=== PATIENT | female | born 1935 | race Caucasian/White ===

== ENCOUNTER 2017-05-27 06:02 | Outpatient (CLI) | payer MEDICARE, OTHER ==
[~2017-05-27] VITALS: Ht 172.7 cm; Wt 81.0 kg
--- NOTE | ~2017-05-27 | CATH ---
Cardiac Diagnostic Report Demographics Patient Name AIDAN Simmons Gender Female Date of 1935 Age 82 year(s) Patient Number [id number] Date of Study 05/27/2017 Visit Number [id number] Room Number G6399 [place] [id number] Ht 172.72 cm Wt 81 kg Referring Pam Merchant Primary Physician Physician Performing Kyara Booth MD Secondary Physician Physician Diagnostic Kyara Booth MD Assisting Physician Physician Interventional Physician Cause Analyst Physician Findings and Conclusions Diagnostic Findings and Conclusion Two vessel CAD. Severe aortic stenosis. Diagnostic Recommendations Evaluation for TAVR. Procedure Description The patient was brought to the diagnostic cardiac catheterization-EP laboratory in the fasting, non-sedated state. Informed consent was obtained in the written and verbal form after the risks and benefits were explained. The patient had no further questions and agreed to proceed. The planned puncture-incision site(s) were shaved and prepped with ChloraPrep and draped in the usual sterile manner. Conscious sedation and pain control medications were delivered by a registered nurse under physician guidance. Surface ECG rhythm, blood pressure measurement, and pulse oximetry were monitored throughout the procedure. Arterial access. The access site was infiltrated with lidocaine. The vessel was entered with the Seldinger technique. A sheath was advanced into the vessel and used for catheter placement. Venous access. The access site was infiltrated with 2% lidocaine. The vessel was entered with the Seldinger technique. A sheath was advanced into the vessel and used for catheter placement. Selective left coronary angiography. A catheter was advanced into the left coronary vessel ostium under Fluoroscopic guidance. Contrast was injected by hand. Images were obtained in multiple projections. Selective right coronary angiography. A catheter was advanced into the right coronary vessel ostium under fluoroscopic guidance. Contrast was injected by hand. Images were obtained in multiple projections. Left heart catheterization. A catheter was advanced across the aortic valve to the left ventricle under fluoroscopic guidance. Resting hemodynamics were obtained. Right heart catheterization. A Mccool Veronika catheter was successfully advanced to the right atrium, right ventricle, pulmonary artery, and pulmonary artery wedge position under fluoroscopic guidance. Resting hemodynamics were obtained. Measurements included pressures, arterial and venous oxygen saturation samples, and cardiac output. The Mccool was removed without difficulty. Arterial and Venous hemostasis was achieved. The patient was transferred to a regular nursing floor via cart accompanied by a nurse. The patient left the laboratory in stable condition. Diagnostic Cath Status: Elective Procedure Procedure Type Diagnostic procedure:Angiography:, Right and Left Heart Cath, Coronary Angios Indications: Aortic stenosis by Echo and Dyspnea with exertion. The procedure was explained in detail to the patient. Risks, complications and alternative treatments were reviewed. Written consent was obtained. Medications Reviewed with Patient prior to Procedure. Angiographic Findings Dominance: Right Cardiac Arteries and Lesion Findings LMCA: Large, calcified. LAD: Large, calcified. Diag 1 medium, normal. LCx: Large, co-dominant. AV groove over ostial 95% stenosis. OM large, normal. RCA: Chronic occlusion. Lesion on Prox RCA: Proximal subsection.100% stenosis .Chronic total occlusion. Graft Lesions Lesion on Aorta Right to R PDA: Middle body.50% stenosis . Cardiac Grafts - There is a Vein graft that originates at the Aorta Right and attaches to the R PDA (Medium, mid 50% stenosis. [place] fine.). - There is a RANDOLPH graft that originates at the RANDOLPH and attaches to the Prox LAD (Patent.). Coronary Tree Procedure Data Procedure Date Date: 05/27/2017Start: 08:07 AMEnd: 09:08 AM Entry Locations - Retrograde Percutaneous access was performed through the Right Femoral artery (Primary location). A 6 Fr sheath was inserted. Hemostasis was successfully obtained using Suture. Closure Comments: Sutured into place by Shivani León.. - Antegrade Percutaneous access was performed through the Right Femoral vein. A 7 Fr sheath was inserted. Hemostasis was successfully obtained using Suture. Closure Comments: Sutured into place by Shivani León.. Procedure Medications Order and Administration + + + + + !Time !Medication !Dosage !Route ! + + + + + !05/27/2017 08:21 AM !Versed !1 mg !I.V. ! + + + + + !05/27/2017 08:22 AM !Fentanyl !25 mcg !I.V. ! + + + + + !05/27/2017 08:33 AM !Heparin (ACC_3) !3000 units !I.V. bolus ! + + + + + Devices Used - A6 Fr. BS JL 4 Diag. Catheterwas used for:Left coronary angiography. - A6 Fr. BS Angled Pigtail Diag. Catheterwas used for:LV Pressures. - A6 Fr. BS JR 4 Diag. Catheterwas used for:Right coronary angiography. - A6 Fr. BS IMT Diag. Catheterwas used for:RANDOLPH. Contrast Material - Isovue 50561 ml Fluoroscopy Time: Diagnostic: 9:24 minutes. Total: 9:24 minutes. Fluoroscopy Dose: Diagnostic: 337 mGy. Total: 337 mGy. Estimated Blood Loss: 4 ml. Medical History Allergies - No known allergies. Risk Factors The patient risk factors include:prior CABG;treated hypercholesterolemia, treated hypertension, diet-treated diabetes mellitus and dyslipidemia. Admission Data Admission Date: 05/27/2017 Admission Time: 06:02 AM Admit Source: Other Insurance Payors: Medicare. Admission Medications + +------+------+ + + + + !Medication !Dosage!Times !Last !Last !Administered !Comments ! ! ! !Per !Delivery !Delivery ! ! ! ! ! !Day !Date !Time ! ! ! + +------+------+ + + + + !Aspirin ! ! ! ! ! ! ! !(any) ! ! ! ! ! ! ! + +------+------+ + + + + !DILEEP ! ! ! ! ! ! ! !Inhibitor ! ! ! ! ! ! ! !(any) ! ! ! ! ! ! ! + +------+------+ + + + + !Beta Bob! ! ! ! ! ! ! !(any) ! ! ! ! ! ! ! + +------+------+ + + + + !Non-Statin ! ! ! ! ! ! ! !(any) ! ! ! ! ! ! ! + +------+------+ + + + + Hemodynamics Condition: Rest O2 Consumption: Estimated: 178.98Heart Rate: 77 bpm Oxygen Saturation +--------+-----+----+ +----+ + !Location!pCO2 !pO2 !% Saturation !Hgb !O2 Content ! +--------+-----+----+ +----+ + !IVC ! ! !84.5 !12.6! ! +--------+-----+----+ +----+ + !High RA ! ! !73.9 !12.6! ! +--------+-----+----+ +----+ + !PCW ! ! !76.9 !12.6! ! +--------+-----+----+ +----+ + !FA ! ! !97.9 !12.6! ! +--------+-----+----+ +----+ + Pressures (mmHg) +-----+ + !Site !Pressure ! +-----+ + !RA !12/15 (2) ! +-----+ + !RA !01/17 (2) ! +-----+ + !RV !37/-5 ,4 ! +-----+ + !PCW !25/08 (10) ! +-----+ + !PA !/ (15) ! +-----+ + !LV !196/1 ,16 ! +-----+ + !PCW !09/30 (14) ! +-----+ + !LV !129/24 ,5 ! +-----+ + !PCW ! (18) ! +-----+ + !LV !196/0 ,9 ! +-----+ + !PCW !18/23 (15) ! +-----+ + !LV !213/3 ,14 ! +-----+ + !PCW !17/20 (14) ! +-----+ + !FA !178/77 (122) ! +-----+ + !LV !212/0 ,12 ! +-----+ + !FA !170/74 (116) ! +-----+ + !LV !206/0 ,12 ! +-----+ + !AO !188/63 (116) ! +-----+ + !LV !206/-2 12 ! +-----+ + !AO !18564 (114) ! +-----+ + !AO !185/64 (115) ! +-----+ + !FA !159/78 (113) ! +-----+ + !AO !166/55 (101) ! +-----+ + Cardiac Output + + +------+ !Time !Cardiac Output (l/min) !Use ! + + +------+ !05/27/2017 08:33 AM !7.91 !True ! + + +------+ !05/27/2017 08:33 AM !6.95 !True ! + + +------+ !05/27/2017 08:34 AM !11.84 !False ! + + +------+ !05/27/2017 08:34 AM !7.1 !True ! + + +------+ !05/27/2017 08:35 AM !5.61 !False ! + + +------+ !05/27/2017 08:35 AM !7.85 !True ! + + +------+ Cardiac Output +-------+ + + + !Method !CO (l/min) !CI (l/min/m2) !SV (ml) ! +-------+ + + + !Thermal!7.4525 !3.8 !95.54 ! +-------+ + + + Valve Gradients and Areas + +--------+--------+--------+---------+---------+ + !Valve !Peak !Mean !Area !Index !Flow !Source ! + +--------+--------+--------+---------+---------+ + !Aortic !18 !21 !1.33 !0.68 !270.8 !Thermal ! + +--------+--------+--------+---------+---------+ + !Aortic !18 !21 ! ! ! ! ! + +--------+--------+--------+---------+---------+ + Shunts Oxygen Values O2 Capacity 171.36 O2 Consumption 178.98 Vascular Resistance (dynes x sec x cm-5) + +-----+-----+----+----+---------+-------+ !CO method !TSVR !SVR !TPVR!PVR !TPVR/TSVR!PVR/SVR! + +-----+-----+----+----+---------+-------+ !Thermal !13.49!13.16!2.05!0.23!0.15 !0.02 ! + +-----+-----+----+----+---------+-------+ Discharge Data Discharge Date: 05/27/2017 Hospital Status: Outpatient Signatures dtt: Leobardo Sparrow (cardio) dtd: 05/27/17 0807 Physician Self Edit
--- NOTE | ~2017-05-27 | ECHO ---
Transesophageal Echocardiography Report (MANDO) Demographics Patient Name KENDAL BERMUDEZ Date of Study 05/27/2017 Patient Number [id number] Visit Number [id number] Date of 1935 Room Number G6399 Gender Female Number Age 82 year(s) Referring Mesfin Perry Personal Health Coach Veronica Tyler RVT Physician MD Pam Merchant Physician Interpreting Mesfin Perry Hat Blocking Operator Physician Supervising Ordering Mesfin Perry MD/MLP Physician MD Nurse Stress Business Coordinator Conclusions Summary Technically difficult study. MANDO/supplemental 3D images obtained. Normal LV/RV size and systolic function. AV is severely calcified with restricted opening s/o severe . Trivial AI. LA is mildly dilated. LVOT measures 1.96 cms, Aortic root at level of sinuses 3.1 cms, sinotubular junction 2.8 cms and ascending aorta 3.3 cms. MV is grossly normal. Trace MR. There is Grade 1 plaque seen in the ascending aorta . Procedure Type of Study MANDO procedure Procedure Date Date: 05/27/2017 Start: 12:13 PM Study Location: Inpatient Portable Technical Quality: Adequate visualization Indications:Aortic stenosis. Appropriate Use Criteria: 9 Patient Status: Routine HR: 74 bpm BP: 171/74 mmHg Allergies - No known allergies. Doppler Measurements AV Peak Velocity: 2.72 m/s AV Peak Gradient: 29.59 mmHg AV Mean Gradient: 14 mmHg Findings Left Atrium There is no evidence of patent foramen ovale or atrial septal defect by color Doppler. There is no evidence of patent foramen ovale or atrial septal defect by color Doppler. Miscellaneous The patient was brought to the [facility] lab in the fasting state after informed consent was obtained in the written and verbal format. Bite block was placed by mi. Once adequate anesthesia was obtained with anesthesia guidance with propofol sedation the MANDO probe was placed by me down into the stomach. It was pulled back slightly after a few views were obtained in the transgastric level to the transesophageal position where the majority of the case was carried out. At the end of the case the probe was rotated and withdrawn. Patient tolerated the procedure well. Contractility Score LV regional wall motion:(0-Non visualized 1-Normal 2-Hypokinesis 3-Akinesis 4-Dyskinesis 5-Aneurysm) Signature dtt: ELISSA DOLAN dtd: 05/27/17 1213 Physician Self Edit
[~2017-05-27 06:02] MED LIST: ASPIRIN (CHILDR81 MG PO; CALCIUM500 MG PO; CHROMIUM PICO200 MC1 PO; FISH OIL-OMEGA1 EACH PO; LASIX20 MG PO; LEVOTHROID (SY88 MCG PO; MAG-OX-400(241400 MG PO; METOPROLOL TART25 MG PO; MIDAMOR5 MG PO; MUCINEX1200 MG PO; NIACIN CONTROL500 MG PO; PRINIVIL (ZESTRI5 MG PO; SUPPLEMENT PO; VITAMIN B-121000 MCG PO; VITAMIN D-32000 UNI1 PO
== END 2017-05-27 16:13 | disposition disaster alternative care site (69) ==
LOC: GCAT 06:02 → GPCU 06:02 → GPOC 10:00 → GCAT 16:13
PROC: 4A023N8 Measurement of Cardiac Sampling and Pressure, Bilateral, Percutaneous Approach (ICD-10-PCS; principal; 2017-05-27)
PROC: B216YZZ Fluoroscopy of Right and Left Heart using Other Contrast (ICD-10-PCS; 2017-05-27)
DX: I35.0 Nonrheumatic aortic (valve) stenosis (principal); I72.9 Aneurysm of unspecified site; I70.0 Atherosclerosis of aorta; I70.8 Atherosclerosis of other arteries; E78.5 Hyperlipidemia, unspecified
CPT/HCPCS: J1644; J2001; J2250; J3010; J7030; J7060; Q9967